=== PATIENT | female | born 1955 | race African-American/Black ===

== ENCOUNTER 2018-12-29 08:45 | Inpatient (IN) ==
[2018-12-29] MEDS ORDERED: ALBUTEROL/IPRATROPIUM 3 ML NEB RESP TX STA ×2 (09:10→15:37)
[2018-12-29 09:22] LABS: Basophils # 0.1 10*3/uL (0.0-0.2); Basophils % 0.4 % (0.0-0.8); Eosinophils # 0.1 10*3/uL (0.0-0.87); Eosinophils % 0.5 % (0.00-10.9); Hematocrit 46.5 VOL% (35.7-47.0); Hemoglobin 14.6 GM/DL (12.0-16.0); Immature Granulocytes % 0.4 %; Immature Granulocytes Absolute 0.04 #; Lymphocytes # 2.9 10*3/uL (1.4-4.0); Lymphocytes % 25.6 % (21.3-54.2); Mean Corpuscular HGB Conc 31.4 GM/DL (32-36); Mean Corpuscular Volume 84.1 FL (87-102); Mean Platelet Volume 10.4 FL (9.6-12.0); Monocytes % 12.7 % (1.7-12.7); Neutrophils % 60.4 % (38.7-73.9); Platelet Count 387 T/CUMM (130-400); Red Blood Count 5.53 MC/CUMM (3.8-5.5); White Blood Count 11.4 T/CUMM (4-12)
[2018-12-29 09:44] LABS: Albumin 3.6 G/DL (3.4-5.0); Bilirubin,Total 0.7 MG/DL (0.2-1.0); Calcium 8.8 MG/DL (8.5-10.1); Osmolality,Calculated 286.7 MOS/KG (273-304); Total Protein 7.7 G/DL (6.4-8.3)
[2018-12-29] MEDS ORDERED: ONDANSETRON 4 MG/2 ML VIAL ONE (09:51)
[2018-12-29] MEDS ORDERED: MORPHINE 4 MG/1 ML VIAL ONE (09:52)
[2018-12-29] MEDS ORDERED: MORPHINE 4 MG/1 ML VIAL IV STA (10:04)
[2018-12-29] MEDS ORDERED: ONDANSETRON 4 MG/2 ML VIAL IV STA (10:04)
[2018-12-29] MEDS ORDERED: LORazepam 1 MG TABLET ONE (10:42)
[2018-12-29] MEDS ORDERED: LORazepam 1 MG TABLET PO STA (10:45)
[2018-12-29] MEDS ORDERED: PROMETHAZINE 25 MG/1 ML VIAL IM PRN (11:28)
[2018-12-29] MEDS ORDERED: NICOTINE 21 MG/24 HR PATCH TRANSDERM PRN (11:28)
[2018-12-29] MEDS ORDERED: guaiFENesin/DM ER 600-30 MG TABLET PO PRN (11:28)
[2018-12-29] MEDS ORDERED: DOCUSATE SODIUM 100 MG CAPSULE PO PRN (11:28)
[2018-12-29] MEDS ORDERED: ONDANSETRON 4 MG/2 ML VIAL IV PRN (11:28)
[2018-12-29] MEDS: SODIUM CHLORIDE 0.9% 1,000 ML IV SCH ×2 (12:35→20:23)
[2018-12-29] MEDS ORDERED: MORPHINE 4 MG/1 ML VIAL IV PRN (15:00)
[2018-12-29] MEDS ORDERED: BUDESONIDE/FORMOTEROL 80-4.5 INHALER 6.9 GM INH PRN (15:11)
[2018-12-29] MEDS ORDERED: ALBUTEROL 2.5 MG/3 ML NEB RESP TX PRN (15:11)
[2018-12-29] MEDS ORDERED: CEFEPIME 1,000 MG VIAL ONE (15:15)
[2018-12-29] MEDS: methylPREDNISolone SOD SUC 40 MG/1 ML VIAL IV SCH ×2 (15:28→21:39)
[2018-12-29] MEDS: CEFEPIME 1,000 MG in SYRINGE 1 EACH IV SCH (15:31)
[2018-12-29] MEDS: LEVOFLOXACIN INJ 750 MG in PREMIX 1 EACH IV SCH (18:50)
[2018-12-29] MEDS: ALBUTEROL/IPRATROPIUM 3 ML NEB RESP TX SCH (19:42)
[2018-12-29] MEDS: METOPROLOL TARTRATE 25 MG TABLET PO SCH (21:38)
[2018-12-29] MEDS: CILOSTAZOL 100 MG TABLET PO SCH (21:38)
[2018-12-30] MEDS: ALBUTEROL/IPRATROPIUM 3 ML NEB RESP TX SCH ×4 (00:08→20:11)
[2018-12-30] MEDS: SODIUM CHLORIDE 0.9% 1,000 ML IV SCH ×3 (03:55→18:27)
[2018-12-30] MEDS: methylPREDNISolone SOD SUC 40 MG/1 ML VIAL IV SCH ×4 (04:05→21:08)
[2018-12-30] MEDS: CEFEPIME 1,000 MG in SYRINGE 1 EACH IV SCH ×2 (04:09→15:19)
[2018-12-30 04:59] LABS: Basophils % 0.1 % (0.0-0.8); Immature Granulocytes % 0.4 %; Immature Granulocytes Absolute 0.04 #; Lymphocytes # 0.8 10*3/uL (1.4-4.0); Lymphocytes % 9.1 % (21.3-54.2); Mean Corpuscular Volume 84.7 FL (87-102); Mean Platelet Volume 10.8 FL (9.6-12.0); Monocytes % 2.1 % (1.7-12.7); Neutrophils % 88.3 % (38.7-73.9); Platelet Count 336 T/CUMM (130-400); Red Blood Count 4.96 MC/CUMM (3.8-5.5); Red Cell Distribution Width 14.1 % (9.3-17.3); White Blood Count 9.1 T/CUMM (4-12)
[2018-12-30 05:14] LABS: Albumin 2.9 G/DL (3.4-5.0); Bilirubin,Total 0.8 MG/DL (0.2-1.0); Calcium 8.9 MG/DL (8.5-10.1); Osmolality,Calculated 289.5 MOS/KG (273-304); Total Protein 7.2 G/DL (6.4-8.3)
[2018-12-30] MEDS: CILOSTAZOL 100 MG TABLET PO SCH ×2 (08:55→21:08)
[2018-12-30] MEDS: CLOPIDOGREL 75 MG TABLET PO SCH (08:55)
[2018-12-30] MEDS: PANTOPRAZOLE 40 MG TABLET PO SCH (08:55)
[2018-12-30] MEDS: ASPIRIN EC 81 MG TABLET PO SCH (08:55)
[2018-12-30] MEDS: amLODIPine 10 MG TABLET PO SCH (08:55)
[2018-12-30] MEDS: METOPROLOL TARTRATE 25 MG TABLET PO SCH ×2 (08:55→21:08)
[2018-12-31] MEDS: ALBUTEROL/IPRATROPIUM 3 ML NEB RESP TX SCH ×4 (01:51→19:21)
[2018-12-31] MEDS: methylPREDNISolone SOD SUC 40 MG/1 ML VIAL IV SCH ×4 (03:04→20:54)
[2018-12-31] MEDS: CEFEPIME 1,000 MG in SYRINGE 1 EACH IV SCH ×2 (03:06→15:54)
[2018-12-31] MEDS: SODIUM CHLORIDE 0.9% 1,000 ML IV SCH ×4 (03:11→23:56)
[2018-12-31 04:57] LABS: Basophils % 0.1 % (0.0-0.8); Hematocrit 38.9 VOL% (35.7-47.0); Hemoglobin 11.7 GM/DL (12.0-16.0); Immature Granulocytes % 0.8 %; Immature Granulocytes Absolute 0.14 #; Lymphocytes # 1.2 10*3/uL (1.4-4.0); Lymphocytes % 7.2 % (21.3-54.2); Mean Corpuscular HGB Conc 30.1 GM/DL (32-36); Mean Corpuscular Volume 85.3 FL (87-102); Mean Platelet Volume 10.5 FL (9.6-12.0); Monocytes % 3.9 % (1.7-12.7); Platelet Count 348 T/CUMM (130-400); Red Blood Count 4.56 MC/CUMM (3.8-5.5); Red Cell Distribution Width 14.4 % (9.3-17.3); White Blood Count 17.1 T/CUMM (4-12)
[2018-12-31 05:37] LABS: Albumin 2.8 G/DL (3.4-5.0); Bilirubin,Total 0.4 MG/DL (0.2-1.0); Calcium 8.7 MG/DL (8.5-10.1); Osmolality,Calculated 290.4 MOS/KG (273-304); Total Protein 6.6 G/DL (6.4-8.3)
[2018-12-31] MEDS: METOPROLOL TARTRATE 25 MG TABLET PO SCH ×2 (08:46→20:53)
[2018-12-31] MEDS: CLOPIDOGREL 75 MG TABLET PO SCH (08:46)
[2018-12-31] MEDS: ASPIRIN EC 81 MG TABLET PO SCH (08:46)
[2018-12-31] MEDS: amLODIPine 10 MG TABLET PO SCH (08:46)
[2018-12-31] MEDS: PANTOPRAZOLE 40 MG TABLET PO SCH (08:46)
[2018-12-31] MEDS: CILOSTAZOL 100 MG TABLET PO SCH ×2 (08:46→20:53)
[2018-12-31] MEDS ORDERED: LACTULOSE 20 GM/30 ML UDCUP PO PRN (11:59)
[2018-12-31] MEDS ORDERED: SKIN HEALING OINT (AQUAPHOR) 50 GM TUBE TOP PRN (12:00)
[2018-12-31] MEDS: LEVOFLOXACIN INJ 750 MG in PREMIX 1 EACH IV SCH (15:58)
[2019-01-01] MEDS: ALBUTEROL/IPRATROPIUM 3 ML NEB RESP TX SCH ×4 (00:53→19:48)
[2019-01-01 02:43] LABS: Basophils % 0.2 % (0.0-0.8); Hematocrit 39.4 VOL% (35.7-47.0); Hemoglobin 11.9 GM/DL (12.0-16.0); Immature Granulocytes % 1.6 %; Immature Granulocytes Absolute 0.27 #; Lymphocytes # 1.3 10*3/uL (1.4-4.0); Lymphocytes % 7.5 % (21.3-54.2); Mean Corpuscular HGB Conc 30.2 GM/DL (32-36); Mean Corpuscular Volume 84.5 FL (87-102); Mean Platelet Volume 10.1 FL (9.6-12.0); Monocytes % 3.6 % (1.7-12.7); Neutrophils % 87.1 % (38.7-73.9); Platelet Count 334 T/CUMM (130-400); Red Blood Count 4.66 MC/CUMM (3.8-5.5); Red Cell Distribution Width 14.5 % (9.3-17.3); White Blood Count 16.6 T/CUMM (4-12)
[2019-01-01 03:06] LABS: Albumin 2.6 G/DL (3.4-5.0); Bilirubin,Total 0.7 MG/DL (0.2-1.0); Calcium 8.5 MG/DL (8.5-10.1); Osmolality,Calculated 288.3 MOS/KG (273-304); Total Protein 6.4 G/DL (6.4-8.3)
[2019-01-01] MEDS: CEFEPIME 1,000 MG in SYRINGE 1 EACH IV SCH ×2 (03:52→15:53)
[2019-01-01] MEDS: methylPREDNISolone SOD SUC 40 MG/1 ML VIAL IV SCH ×4 (03:55→21:17)
[2019-01-01] MEDS: SODIUM CHLORIDE 0.9% 1,000 ML IV SCH (08:07)
[2019-01-01] MEDS: CLOPIDOGREL 75 MG TABLET PO SCH (09:09)
[2019-01-01] MEDS: METOPROLOL TARTRATE 25 MG TABLET PO SCH ×2 (09:09→21:17)
[2019-01-01] MEDS: amLODIPine 10 MG TABLET PO SCH (09:09)
[2019-01-01] MEDS: PANTOPRAZOLE 40 MG TABLET PO SCH (09:09)
[2019-01-01] MEDS: ASPIRIN EC 81 MG TABLET PO SCH (09:09)
[2019-01-01] MEDS: CILOSTAZOL 100 MG TABLET PO SCH ×2 (09:09→21:17)
[2019-01-02] MEDS: ALBUTEROL/IPRATROPIUM 3 ML NEB RESP TX SCH ×3 (01:26→12:25)
[2019-01-02] MEDS: methylPREDNISolone SOD SUC 40 MG/1 ML VIAL IV SCH ×3 (05:07→15:15)
[2019-01-02] MEDS: CEFEPIME 1,000 MG in SYRINGE 1 EACH IV SCH ×2 (05:09→15:14)
[2019-01-02] MEDS: amLODIPine 10 MG TABLET PO SCH (08:44)
[2019-01-02] MEDS: CILOSTAZOL 100 MG TABLET PO SCH (08:44)
[2019-01-02] MEDS: ASPIRIN EC 81 MG TABLET PO SCH (08:44)
[2019-01-02] MEDS: METOPROLOL TARTRATE 25 MG TABLET PO SCH (08:44)
[2019-01-02] MEDS: PANTOPRAZOLE 40 MG TABLET PO SCH (08:44)
[2019-01-02] MEDS: CLOPIDOGREL 75 MG TABLET PO SCH (08:44)
[2019-01-02] MEDS: SODIUM CHLORIDE 0.9% 1,000 ML IV SCH ×3 (08:56→15:04)
[2019-01-02] MEDS: LEVOFLOXACIN INJ 750 MG in PREMIX 1 EACH IV SCH (11:16)
[2019-01-02 11:40] VITALS: BP 150/93
== END 2019-01-02 15:19 | disposition home or self-care (01) | DRG 140 ==
LOC: N.ED 08:45 → SUATTDRO 11:28 → N.EDINP 11:28 → N.4E 16:19
PROVIDERS: ADMIT Hospitalist; ATTEND Internal Medicine

== ENCOUNTER 2021-02-28 18:52 | Observation (INO) ==
[2021-02-28] MEDS ORDERED: ONDANSETRON 4 MG/2 ML VIAL IV ONE (22:55)
[2021-02-28] MEDS ORDERED: SODIUM CHLORIDE 0.9% 1,000 ML IV STA (22:55)
[2021-02-28 23:51] LABS: Eosinophils % 0.3 % (0.00-10.9); Hematocrit 36.5 VOL% (35.7-47.0); Hemoglobin 11.5 GM/DL (12.0-16.0); Immature Granulocytes % 0.7 %; Immature Granulocytes Absolute 0.02 #; Lymphocytes % 32.4 % (21.3-54.2); Mean Corpuscular HGB Conc 31.5 GM/DL (32-36); Mean Corpuscular Volume 93.4 FL (87-102); Monocytes % 3.1 % (1.7-12.7); Neutrophils % 63.5 % (38.7-73.9); Platelet Count 171 T/CUMM (130-400); Red Blood Count 3.91 MC/CUMM (3.8-5.5); Red Cell Distribution Width 18.6 % (9.3-17.3); White Blood Count 2.9 T/CUMM (4-12)
[2021-03-01 01:09] LABS: Albumin 3.2 G/DL (3.4-5.0); Bilirubin,Total 1.6 MG/DL (0.20-1.00); Calcium 7.1 MG/DL (8.5-10.1); Potassium 4.7 MMOL/L (3.5-5.1); Total Protein 8.8 G/DL (6.4-8.2)
[2021-03-01] MEDS ORDERED: SODIUM CHLORIDE 0.9% 1,000 ML IV STA (01:25)
[2021-03-01] MEDS ORDERED: SODIUM CHLORIDE 0.9% 1,000 ML IV SCH (03:00)
[2021-03-01] MEDS ORDERED: PROMETHAZINE 25 MG/1 ML VIAL IM PRN (03:03)
[2021-03-01 03:22] LABS: Lymphocytes 42 % (20-55); Platelet Estimate Normal; Segmented Neutrophils 57 % (50-85); Total Cells Counted 100
[2021-03-01 03:23] LABS: Anisocytosis 1+; Microcytosis Slight
[2021-03-01 03:24] LABS: Tear Drop Cells Few
[2021-03-01 03:39] LABS: Amorphous Crystals,Urine Few /HPF (Few); Bilirubin,Urine Negative (Negative); Blood, Urine Negative (Negative); Glucose,Urine (UA) Negative (Negative); Ketones,Urine Negative (Negative); Nitrite,Urine Negative (Negative); Protein,Urine 30 MG/DL; RBC,Urine 1 /HPF (0-4); Squamous Epithelial Cell,Urine Occasional /HPF (0-10); Urine Appearance CLEAR (Clear); Urine Color Yellow (Yellow); Urine Specific Gravity 1.008 (1.001-1.035)
[2021-03-01 07:03] LABS: Eosinophils % 0.4 % (0.00-10.9); Hematocrit 30.8 VOL% (35.7-47.0); Hemoglobin 9.9 GM/DL (12.0-16.0); Immature Granulocytes % 1.8 %; Immature Granulocytes Absolute 0.04 #; Lymphocytes # 0.7 10*3/uL (1.4-4.0); Lymphocytes % 30.3 % (21.3-54.2); Mean Corpuscular HGB Conc 32.1 GM/DL (32-36); Mean Corpuscular Volume 93.3 FL (87-102); Mean Platelet Volume 10.8 FL (9.6-12.0); Monocytes % 3.9 % (1.7-12.7); Neutrophils % 63.6 % (38.7-73.9); Platelet Count 118 T/CUMM (130-400); Red Cell Distribution Width 18.4 % (9.3-17.3); White Blood Count 2.3 T/CUMM (4-12)
[2021-03-01 07:29] LABS: Albumin 2.6 G/DL (3.4-5.0); Bilirubin,Total 0.9 MG/DL (0.20-1.00); Calcium 6.4 MG/DL (8.5-10.1); Osmolality,Calculated 284.5 MOS/KG (273-304); Potassium 4.5 MMOL/L (3.5-5.1); Total Protein 7.2 G/DL (6.4-8.2)
[2021-03-01] MEDS: ONDANSETRON 4 MG/2 ML VIAL IV PRN ×2 (07:45→12:15)
[2021-03-01] MEDS ORDERED: ALBUTEROL/IPRATROPIUM 3 ML NEB RESP TX PRN (08:55)
[2021-03-01] MEDS: FILGRASTIM-SNDZ 300 MCG/0.5 ML SYRINGE SUBCUT SCH (09:27)
[2021-03-01] MEDS: ENOXAPARIN 30 MG/0.3 ML SYRINGE SUBCUT SCH (09:27)
[2021-03-01] MEDS: SODIUM BICARB INJ 50 MEQ in SODIUM CHLORIDE 0.45% 1,000 ML IV SCH (09:27)
[2021-03-01] MEDS: FOLIC ACID 1 MG TABLET PO SCH (09:27)
[2021-03-01] MEDS: CLOPIDOGREL 75 MG TABLET PO SCH (09:27)
[2021-03-01] MEDS: amLODIPine 10 MG TABLET PO SCH (09:27)
[2021-03-01] MEDS: ASPIRIN EC 81 MG TABLET PO SCH (09:27)
[2021-03-01] MEDS: METOPROLOL TARTRATE 25 MG TABLET PO SCH ×2 (09:27→20:40)
[2021-03-01] MEDS ORDERED: ALPRAZolam 0.25 MG TABLET PO PRN (12:02)
[2021-03-01] MEDS ORDERED: traMADol 50 MG TABLET PO PRN (12:02)
[2021-03-01] MEDS ORDERED: LACTULOSE 20 GM/30 ML UDCUP PO PRN (12:02)
[2021-03-01] MEDS ORDERED: MAGNESIUM HYDROXIDE SUSP 30 ML UDCUP PO PRN (12:02)
[2021-03-01] MEDS ORDERED: diphenhydrAMINE CAP 25 MG CAPSULE PO PRN (12:02)
[2021-03-01] MEDS ORDERED: MYLANTA/LIDO VISC 2:1 300 ML BOTTLE SWISH/SWAL PRN (12:02)
[2021-03-01] MEDS ORDERED: PROMETHAZINE INJ 25 MG in SODIUM CHLORIDE 0.9% 50 ML IV PRN (12:02)
[2021-03-01] MEDS ORDERED: TEMAZEPAM 7.5 MG CAPSULE PO PRN (12:02)
[2021-03-01] MEDS ORDERED: MYLANTA/LIDO VISC 2:1 300 ML BOTTLE SWISH/SPIT PRN (12:02)
[2021-03-01] MEDS ORDERED: ALUMINUM/MAGNES/SIMETH MAX STR 30 ML UDCUP PO PRN (12:02)
[2021-03-01] MEDS ORDERED: LOPERAMIDE 2 MG CAPSULE PO PRN ×2 (12:02)
[2021-03-01] MEDS ORDERED: ACETAMINOPHEN 325 MG TABLET PO PRN (12:02)
[2021-03-01] MEDS ORDERED: guaiFENesin 200 MG/10 ML UDCUP PO PRN (12:02)
[2021-03-01 12:20] LABS: Eosinophils 1 % (0-10); Hypochromasia Slight; Lymphocytes 26 % (20-55); Ovalocytes Few; Platelet Estimate Adequate; Segmented Neutrophils 71 % (50-85); Stomatocytes Slight; Total Cells Counted 100
[2021-03-01] MEDS ORDERED: hydrALAZINE 20 MG/1 ML VIAL IV PRN (15:37)
[2021-03-02] MEDS: SODIUM BICARB INJ 50 MEQ in SODIUM CHLORIDE 0.45% 1,000 ML IV SCH ×3 (02:16→22:45)
[2021-03-02 04:32] LABS: Eosinophils % 0.4 % (0.00-10.9); Hematocrit 28.5 VOL% (35.7-47.0); Hemoglobin 9.1 GM/DL (12.0-16.0); Immature Granulocytes % 1.3 %; Immature Granulocytes Absolute 0.03 #; Lymphocytes # 0.7 10*3/uL (1.4-4.0); Lymphocytes % 29.8 % (21.3-54.2); Mean Corpuscular HGB Conc 31.9 GM/DL (32-36); Mean Corpuscular Volume 94.7 FL (87-102); Mean Platelet Volume 10.4 FL (9.6-12.0); Monocytes % 6.6 % (1.7-12.7); Neutrophils % 61.9 % (38.7-73.9); Platelet Count 89 T/CUMM (130-400); Red Blood Count 3.01 MC/CUMM (3.8-5.5); Red Cell Distribution Width 18.1 % (9.3-17.3); White Blood Count 2.3 T/CUMM (4-12)
[2021-03-02 06:00] LABS: Osmolality,Calculated 292.7 MOS/KG (273-304); Potassium 4.6 MMOL/L (3.5-5.1)
[2021-03-02 06:35] LABS: Calcium 5.8 MG/DL (8.5-10.1)
[2021-03-02 06:59] LABS: Atypical Lymphocytes Few; Eosinophils 2 % (0-10); Lymphocytes 27 % (20-55); Platelet Estimate Decreased; Segmented Neutrophils 65 % (50-85); Total Cells Counted 100
[2021-03-02] MEDS: ASPIRIN EC 81 MG TABLET PO SCH (09:01)
[2021-03-02] MEDS: CALCIUM CARBONATE CHEW 500 MG TABLET PO SCH ×2 (09:01→20:59)
[2021-03-02] MEDS: METOPROLOL TARTRATE 25 MG TABLET PO SCH ×2 (09:01→20:59)
[2021-03-02] MEDS: ENOXAPARIN 30 MG/0.3 ML SYRINGE SUBCUT SCH (09:01)
[2021-03-02] MEDS: amLODIPine 10 MG TABLET PO SCH (09:01)
[2021-03-02] MEDS: CLOPIDOGREL 75 MG TABLET PO SCH (09:01)
[2021-03-02] MEDS: FOLIC ACID 1 MG TABLET PO SCH (09:01)
[2021-03-02] MEDS: FILGRASTIM-SNDZ 300 MCG/0.5 ML SYRINGE SUBCUT SCH (09:02)
[2021-03-03 05:29] LABS: Hematocrit 25.9 VOL% (35.7-47.0); Hemoglobin 8.5 GM/DL (12.0-16.0); Immature Granulocytes % 10.3 %; Immature Granulocytes Absolute 0.14 #; Lymphocytes # 0.6 10*3/uL (1.4-4.0); Lymphocytes % 40.4 % (21.3-54.2); Mean Corpuscular HGB Conc 32.8 GM/DL (32-36); Mean Corpuscular Volume 93.2 FL (87-102); Mean Platelet Volume 12.1 FL (9.6-12.0); Monocytes % 15.4 % (1.7-12.7); Neutrophils % 33.9 % (38.7-73.9); Platelet Count 51 T/CUMM (130-400); Red Blood Count 2.78 MC/CUMM (3.8-5.5); Red Cell Distribution Width 17.2 % (9.3-17.3); White Blood Count 1.4 T/CUMM (4-12)
[2021-03-03 05:59] LABS: Lymphocytes 33 % (20-55); Platelet Estimate Decreased; Segmented Neutrophils 46 % (50-85); Total Cells Counted 100
[2021-03-03 06:00] LABS: Hypochromasia 1+; Microcytosis 1+
[2021-03-03 06:05] LABS: Osmolality,Calculated 280.4 MOS/KG (273-304); Potassium 3.4 MMOL/L (3.5-5.1)
[2021-03-03 06:07] LABS: Calcium 5.6 MG/DL (8.5-10.1)
[2021-03-03] MEDS: METOPROLOL TARTRATE 25 MG TABLET PO SCH (08:54)
[2021-03-03] MEDS: CLOPIDOGREL 75 MG TABLET PO SCH (08:54)
[2021-03-03] MEDS: amLODIPine 10 MG TABLET PO SCH (08:54)
[2021-03-03] MEDS: FOLIC ACID 1 MG TABLET PO SCH (08:54)
[2021-03-03] MEDS: ASPIRIN EC 81 MG TABLET PO SCH (08:54)
[2021-03-03] MEDS: CALCIUM CARBONATE CHEW 500 MG TABLET PO SCH (08:54)
[2021-03-03] MEDS: ENOXAPARIN 30 MG/0.3 ML SYRINGE SUBCUT SCH (08:56)
[2021-03-03] MEDS ORDERED: FILGRASTIM-SNDZ 480 MCG/0.8 ML SYRINGE SUBCUT SCH (09:00)
[2021-03-03 09:42] VITALS: BP 114/68
[2021-03-03] MEDS ORDERED: HEPARIN LOCK FLUSH 500 UNIT/5 ML SYRINGE IV ONE (11:05)
== END 2021-03-03 11:42 | disposition home or self-care (01) ==
LOC: N.ED 18:52 → N.EDINP 18:52 → SUATTDRO 03-01 02:59 → N.4E 03-01 03:54
PROVIDERS: ADMIT Internal Medicine; ATTEND Internal Medicine

== ENCOUNTER 2021-04-15 15:58 | Inpatient (IN) ==
[2021-04-15] MEDS ORDERED: GLUCAGON 1 MG VIAL IM PRN (18:45)
[2021-04-15] MEDS ORDERED: ACETAMINOPHEN 325 MG TABLET PO PRN (18:45)
[2021-04-15] MEDS ORDERED: DEXTROSE 50% 25 GM/50 ML VIAL IV PRN (18:45)
[2021-04-15] MEDS ORDERED: MAGNESIUM SULF RIDER 4 GM/100 ML PREMIX IV PRN (18:52)
[2021-04-15] MEDS: ONDANSETRON 4 MG/2 ML VIAL IV PRN (21:15)
[2021-04-15] MEDS: SODIUM CHLORIDE 0.45% 1,000 ML IV SCH (21:35)
[2021-04-15] MEDS: ENOXAPARIN 40 MG/0.4 ML SYRINGE SUBCUT SCH (21:35)
[2021-04-15] MEDS: MAGNESIUM SULF RIDER 2 GM/50 ML PREMIX IV PRN (21:36)
[2021-04-15] MEDS: CALCIUM (CARBONATE) 500 MG TABLET PO SCH (21:36)
[2021-04-15] MEDS ORDERED: HEPARIN 5,000 UNIT/1 ML VIAL ONE (21:48)
[2021-04-16 05:24] LABS: Basophils % 0.4 % (0.0-0.8); Eosinophils # 0.2 10*3/uL (0.0-0.87); Eosinophils % 2.1 % (0.00-10.9); Hematocrit 34.6 VOL% (35.7-47.0); Hemoglobin 10.6 GM/DL (12.0-16.0); Immature Granulocytes % 0.6 %; Immature Granulocytes Absolute 0.06 #; Lymphocytes # 1.5 10*3/uL (1.4-4.0); Lymphocytes % 14.6 % (21.3-54.2); Mean Corpuscular HGB Conc 30.6 GM/DL (32-36); Mean Corpuscular Volume 95.6 FL (87-102); Mean Platelet Volume 10.5 FL (9.6-12.0); Neutrophils % 66.3 % (38.7-73.9); Platelet Count 267 T/CUMM (130-400); Red Blood Count 3.62 MC/CUMM (3.8-5.5); Red Cell Distribution Width 18.3 % (9.3-17.3)
[2021-04-16 05:56] LABS: Eosinophils 1 % (0-10); Hypochromasia 1+; Lymphocytes 16 % (20-55); Microcytosis 1+; Platelet Estimate Adequate; Segmented Neutrophils 73 % (50-85); Total Cells Counted 100
[2021-04-16 06:02] LABS: Alanine Aminotransferase 20 U/L (13-56); Albumin 2.7 G/DL (3.4-5.0); Alkaline Phosphatase 74 U/L (45-117); Aspartate Amino Transferase 57 U/L (0-37); Blood Urea Nitrogen 33 MG/DL (7-18); Carbon Dioxide 19 MMOL/L (21-32); Estimated Glom Filtration Rate 10 ML/MIN; Glucose 84 MG/DL (74-106); HDL Cholesterol 38 MG/DL (40-60); Osmolality,Calculated 280.7 MOS/KG (273-304); Potassium 5.2 MMOL/L (3.5-5.1); Risk Ratio 3.03; Sodium 138 MMOL/L (136-145); Thyroid Stimulating Hormone 0.619 uIU/ml (0.358-3.74); Triglycerides 154 MG/DL (2-150); VLDL Cholesterol 30.8 MG/DL
[2021-04-16 06:04] LABS: Calcium < 5.0 MG/DL (8.5-10.1)
[2021-04-16] MEDS ORDERED: CALCIUM (CARBONATE) 500 MG TABLET PO SCH (09:00)
[2021-04-16] MEDS: CALCIUM (CARBONATE) 500 MG TABLET PO SCH ×3 (09:38→20:51)
[2021-04-16] MEDS: PANTOPRAZOLE 40 MG TABLET PO SCH (09:38)
[2021-04-16] MEDS: SODIUM CHLORIDE 0.45% 1,000 ML IV SCH ×3 (09:40→20:53)
[2021-04-16] MEDS: SEVELAMER CARBONATE 800 MG TABLET PO SCH ×2 (11:58→18:40)
[2021-04-16] MEDS ORDERED: ONDANSETRON 4 MG TABLET PO PRN (13:10)
[2021-04-16 14:07] LABS: Bacteria,Urine Occasional /HPF (Few); Bilirubin,Urine Negative (Negative); Blood, Urine Small mg/dL (Negative); Glucose,Urine (UA) Negative (Negative); Ketones,Urine Negative (Negative); Nitrite,Urine Negative (Negative); Protein,Urine Negative; RBC,Urine 1 /HPF (0-4); Squamous Epithelial Cell,Urine Occasional /HPF (0-10); Urine Appearance CLEAR (Clear); Urine Color Straw (Yellow); Urine Specific Gravity 1.002 (1.001-1.035); Urine Urobilinogen < 2.0 EU/DL (0.2-1.0)
[2021-04-16] MEDS: ENOXAPARIN 40 MG/0.4 ML SYRINGE SUBCUT SCH (20:52)
[2021-04-17] MEDS: SODIUM CHLORIDE 0.45% 1,000 ML IV SCH ×2 (04:35→17:00)
[2021-04-17 06:01] LABS: Basophils % 0.3 % (0.0-0.8); Eosinophils # 0.2 10*3/uL (0.0-0.87); Hematocrit 29.4 VOL% (35.7-47.0); Hemoglobin 9.1 GM/DL (12.0-16.0); Immature Granulocytes % 0.3 %; Immature Granulocytes Absolute 0.03 #; Lymphocytes # 1.2 10*3/uL (1.4-4.0); Lymphocytes % 13.8 % (21.3-54.2); Mean Corpuscular Volume 96.4 FL (87-102); Mean Platelet Volume 10.2 FL (9.6-12.0); Monocytes % 15.3 % (1.7-12.7); Neutrophils % 68.3 % (38.7-73.9); Platelet Count 207 T/CUMM (130-400); Red Blood Count 3.05 MC/CUMM (3.8-5.5); White Blood Count 8.7 T/CUMM (4-12)
[2021-04-17 07:33] LABS: Alanine Aminotransferase 16 U/L (13-56); Albumin 2.4 G/DL (3.4-5.0); Alkaline Phosphatase 66 U/L (45-117); Aspartate Amino Transferase 50 U/L (0-37); Blood Urea Nitrogen 34 MG/DL (7-18); Carbon Dioxide 18 MMOL/L (21-32); Estimated Glom Filtration Rate 11 ML/MIN; Glucose 78 MG/DL (74-106); Osmolality,Calculated 276.1 MOS/KG (273-304); Potassium 4.7 MMOL/L (3.5-5.1); Sodium 135 MMOL/L (136-145)
[2021-04-17 07:36] LABS: Calcium < 5.0 MG/DL (8.5-10.1)
[2021-04-17] MEDS ORDERED: CLOPIDOGREL 75 MG TABLET PO SCH (09:00)
[2021-04-17] MEDS ORDERED: ASPIRIN EC 81 MG TABLET PO SCH (09:00)
[2021-04-17] MEDS: SEVELAMER CARBONATE 800 MG TABLET PO SCH ×3 (09:46→17:03)
[2021-04-17] MEDS: FOLIC ACID 1 MG TABLET PO SCH (09:46)
[2021-04-17] MEDS: amLODIPine 10 MG TABLET PO SCH (09:46)
[2021-04-17] MEDS: METOPROLOL SUCCINATE XL 25 MG TABLET PO SCH (09:46)
[2021-04-17] MEDS: CALCIUM (CARBONATE) 500 MG TABLET PO SCH ×4 (09:46→21:35)
[2021-04-17] MEDS: PANTOPRAZOLE 40 MG TABLET PO SCH (09:46)
[2021-04-17 16:21] LABS: Hematocrit 31.3 VOL% (35.7-47.0); Hemoglobin 9.6 GM/DL (12.0-16.0)
[2021-04-17] MEDS: ENOXAPARIN 40 MG/0.4 ML SYRINGE SUBCUT SCH (21:35)
[2021-04-18] MEDS: SODIUM CHLORIDE 0.45% 1,000 ML IV SCH ×3 (00:45→17:18)
[2021-04-18 06:25] LABS: Basophils % 0.3 % (0.0-0.8); Eosinophils # 0.2 10*3/uL (0.0-0.87); Eosinophils % 2.1 % (0.00-10.9); Hematocrit 30.6 VOL% (35.7-47.0); Hemoglobin 9.7 GM/DL (12.0-16.0); Immature Granulocytes % 0.6 %; Immature Granulocytes Absolute 0.06 #; Lymphocytes # 1.1 10*3/uL (1.4-4.0); Lymphocytes % 11.4 % (21.3-54.2); Mean Corpuscular HGB Conc 31.7 GM/DL (32-36); Mean Corpuscular Volume 95.9 FL (87-102); Mean Platelet Volume 9.8 FL (9.6-12.0); Monocytes % 14.6 % (1.7-12.7); Platelet Count 222 T/CUMM (130-400); Red Blood Count 3.19 MC/CUMM (3.8-5.5); White Blood Count 9.9 T/CUMM (4-12)
[2021-04-18 06:43] LABS: Albumin 2.2 G/DL (3.4-5.0); Bilirubin,Total 0.4 MG/DL (0.20-1.00); Potassium 5.5 MMOL/L (3.5-5.1)
[2021-04-18 06:45] LABS: Calcium 5.1 MG/DL (8.5-10.1)
[2021-04-18] MEDS: PANTOPRAZOLE 40 MG TABLET PO SCH (08:53)
[2021-04-18] MEDS: CALCIUM (CARBONATE) 500 MG TABLET PO SCH ×4 (08:53→20:16)
[2021-04-18] MEDS: SEVELAMER CARBONATE 800 MG TABLET PO SCH ×3 (08:53→17:17)
[2021-04-18] MEDS: METOPROLOL SUCCINATE XL 25 MG TABLET PO SCH (08:53)
[2021-04-18] MEDS: FOLIC ACID 1 MG TABLET PO SCH (08:53)
[2021-04-18] MEDS: ASPIRIN EC 81 MG TABLET PO SCH (08:53)
[2021-04-18] MEDS: CLOPIDOGREL 75 MG TABLET PO SCH (08:54)
[2021-04-18] MEDS: amLODIPine 10 MG TABLET PO SCH (08:54)
[2021-04-18] MEDS: HEPARIN 5,000 UNIT/1 ML VIAL SUBCUT SCH ×2 (09:24→20:16)
[2021-04-18] MEDS: SODIUM ZIRCONIUM CYCLOSILICATE 10 GM PACK PO SCH (09:24)
[2021-04-19] MEDS: SODIUM CHLORIDE 0.45% 1,000 ML IV SCH ×3 (00:05→19:42)
[2021-04-19 04:55] LABS: Basophils % 0.3 % (0.0-0.8); Eosinophils # 0.2 10*3/uL (0.0-0.87); Eosinophils % 2.2 % (0.00-10.9); Hematocrit 30.3 VOL% (35.7-47.0); Hemoglobin 9.4 GM/DL (12.0-16.0); Immature Granulocytes % 0.6 %; Immature Granulocytes Absolute 0.05 #; Mean Corpuscular Volume 96.8 FL (87-102); Mean Platelet Volume 10.6 FL (9.6-12.0); Neutrophils % 73.9 % (38.7-73.9); Platelet Count 219 T/CUMM (130-400); Red Blood Count 3.13 MC/CUMM (3.8-5.5); White Blood Count 8.6 T/CUMM (4-12)
[2021-04-19 05:26] LABS: Albumin 2.3 G/DL (3.4-5.0); Bilirubin,Total 0.4 MG/DL (0.20-1.00); Calcium 6.5 MG/DL (8.5-10.1); Osmolality,Calculated 283.8 MOS/KG (273-304); Potassium 4.8 MMOL/L (3.5-5.1); Total Protein 6.9 G/DL (6.4-8.2)
[2021-04-19] MEDS: MAGNESIUM SULF RIDER 2 GM/50 ML PREMIX IV PRN (05:40)
[2021-04-19] MEDS: SODIUM ZIRCONIUM CYCLOSILICATE 10 GM PACK PO SCH (08:21)
[2021-04-19] MEDS: HEPARIN 5,000 UNIT/1 ML VIAL SUBCUT SCH ×2 (08:21→20:43)
[2021-04-19] MEDS: SEVELAMER CARBONATE 800 MG TABLET PO SCH ×3 (08:21→16:17)
[2021-04-19] MEDS: ASPIRIN EC 81 MG TABLET PO SCH (08:21)
[2021-04-19] MEDS: CLOPIDOGREL 75 MG TABLET PO SCH (08:21)
[2021-04-19] MEDS: PANTOPRAZOLE 40 MG TABLET PO SCH (08:22)
[2021-04-19] MEDS: amLODIPine 10 MG TABLET PO SCH (08:22)
[2021-04-19] MEDS: FOLIC ACID 1 MG TABLET PO SCH (08:22)
[2021-04-19] MEDS: METOPROLOL SUCCINATE XL 25 MG TABLET PO SCH (08:22)
[2021-04-19] MEDS: CALCIUM (CARBONATE) 500 MG TABLET PO SCH ×4 (08:22→20:44)
[2021-04-19] MEDS ORDERED: ALUMINUM/MAGNES/SIMETH MAX STR 30 ML UDCUP PO PRN (14:44)
[2021-04-19] MEDS: ONDANSETRON 4 MG/2 ML VIAL IV PRN (20:15)
[2021-04-20] MEDS: SODIUM CHLORIDE 0.45% 1,000 ML IV SCH (03:28)
[2021-04-20 06:17] LABS: Basophils % 0.4 % (0.0-0.8); Eosinophils # 0.2 10*3/uL (0.0-0.87); Eosinophils % 2.2 % (0.00-10.9); Hematocrit 29.2 VOL% (35.7-47.0); Immature Granulocytes % 0.6 %; Immature Granulocytes Absolute 0.05 #; Lymphocytes # 1.2 10*3/uL (1.4-4.0); Lymphocytes % 15.1 % (21.3-54.2); Mean Corpuscular HGB Conc 30.8 GM/DL (32-36); Mean Corpuscular Volume 95.4 FL (87-102); Mean Platelet Volume 10.6 FL (9.6-12.0); Monocytes % 16.6 % (1.7-12.7); Neutrophils % 65.1 % (38.7-73.9); Platelet Count 216 T/CUMM (130-400); Red Blood Count 3.06 MC/CUMM (3.8-5.5); Red Cell Distribution Width 17.9 % (9.3-17.3)
[2021-04-20 06:53] LABS: Eosinophils 3 % (0-10); Lymphocytes 7 % (20-55); Platelet Estimate Normal; Segmented Neutrophils 78 % (50-85); Total Cells Counted 100
[2021-04-20 07:23] LABS: Albumin 2.3 G/DL (3.4-5.0); Bilirubin,Total 0.5 MG/DL (0.20-1.00); Calcium 6.8 MG/DL (8.5-10.1); Osmolality,Calculated 278.1 MOS/KG (273-304); Total Protein 6.6 G/DL (6.4-8.2)
[2021-04-20 08:37] VITALS: BP 132/78
[2021-04-20] MEDS: CLOPIDOGREL 75 MG TABLET PO SCH (08:57)
[2021-04-20] MEDS: HEPARIN 5,000 UNIT/1 ML VIAL SUBCUT SCH (08:57)
[2021-04-20] MEDS: ASPIRIN EC 81 MG TABLET PO SCH (08:57)
[2021-04-20] MEDS: PANTOPRAZOLE 40 MG TABLET PO SCH (08:57)
[2021-04-20] MEDS: FOLIC ACID 1 MG TABLET PO SCH (08:58)
[2021-04-20] MEDS: METOPROLOL SUCCINATE XL 25 MG TABLET PO SCH (08:58)
[2021-04-20] MEDS: amLODIPine 10 MG TABLET PO SCH (08:58)
[2021-04-20] MEDS ORDERED: CALCIUM (CARBONATE) 500 MG TABLET PO SCH (09:00)
[2021-04-20] MEDS: SODIUM ZIRCONIUM CYCLOSILICATE 10 GM PACK PO SCH (09:02)
[2021-04-20] MEDS: SEVELAMER CARBONATE 800 MG TABLET PO SCH (09:21)
== END 2021-04-20 11:38 | disposition home or self-care (01) | DRG 641 ==
LOC: INTOOBSV 17:08 → N.TELEN 17:08 → SUATTDRO 17:08 → N.4E 04-17 11:32
PROVIDERS: ADMIT Internal Medicine; ATTEND Hospitalist